=== PATIENT | male | born 1945 | race Caucasian/White ===

== ENCOUNTER 2021-10-11 15:14 | Outpatient (RCR) | payer SELFPAY | END 2021-11-09 23:59 | disposition home or self-care (01) | LOC: CR 15:14 | PROVIDERS: PCP Family Medicine Adult Medicine; Visit Provider Family Medicine ==

== ENCOUNTER 2021-12-10 10:00 | Outpatient (RCR) | payer MEDICARE, SELFPAY | END 2021-12-10 23:59 | disposition home or self-care (01) | LOC: CR 10:00 | PROVIDERS: PCP Family Medicine Adult Medicine; Visit Provider Family Medicine | DX: Z51.89 Encounter for other specified aftercare (principal); I25.10 Atherosclerotic heart disease of native coronary artery without angina pectoris; Z95.5 Presence of coronary angioplasty implant and graft | CPT/HCPCS: S9472 ==

== ENCOUNTER 2021-12-31 10:00 | Outpatient (RCR) | payer MEDICARE, SELFPAY | END 2022-01-07 23:59 | disposition home or self-care (01) | LOC: CR 10:00 | PROVIDERS: PCP Family Medicine Adult Medicine; Visit Provider Family Medicine | DX: I25.10 Atherosclerotic heart disease of native coronary artery without angina pectoris (principal); Z95.5 Presence of coronary angioplasty implant and graft; Z51.89 Encounter for other specified aftercare | CPT/HCPCS: S9472 ==

== ENCOUNTER 2022-02-04 10:00 | Outpatient (RCR) | payer MEDICARE, SELFPAY | END 2022-02-07 23:59 | disposition home or self-care (01) | LOC: CR 10:00 | PROVIDERS: PCP Family Medicine Adult Medicine; Visit Provider Family Medicine | DX: Z51.89 Encounter for other specified aftercare (principal); I25.10 Atherosclerotic heart disease of native coronary artery without angina pectoris; Z95.5 Presence of coronary angioplasty implant and graft | CPT/HCPCS: S9472 ==

== ENCOUNTER 2022-02-25 10:00 | Outpatient (RCR) | payer MEDICARE, SELFPAY | END 2022-03-09 23:59 | disposition home or self-care (01) | LOC: CR 10:00 | PROVIDERS: PCP Family Medicine Adult Medicine; Visit Provider Internal Medicine Cardiovascular Disease | DX: Z51.89 Encounter for other specified aftercare (principal); I25.10 Atherosclerotic heart disease of native coronary artery without angina pectoris; Z95.5 Presence of coronary angioplasty implant and graft | CPT/HCPCS: S9472 ==

== ENCOUNTER 2022-04-03 10:00 | Outpatient (RCR) | payer MEDICARE, SELFPAY ==
--- OUTSIDE RECORDS SUMMARY | 2022-03-10 01:13 | XMS_ITS | Summary of Care ---
:1945 Author Organization [facility] Address [address] [place] [address]- Encounter 01/19/20 - 01/26/20 [facility] [address] [place] [address]- [phone] Encounter Diagnosis Rehab Dx - Bilateral TKA for end stage osteoarthritis (Discharge Diagnosis) - 01/19/20 Discharge Disposition: Home with Home Health Care Attending Physician: Davonte Rosas MD Admitting Physician: Davonte Rosas MD Allergies, Adverse Reactions, Alerts Substance Reaction Severity Status Lipitor Active Medications aspirin 325 mg oral tablet 325 mg = 1 tab, Tab, Oral, BID, 0 Refill(s) Start Date: 01/25/20 Status: Ordereddocusate sodium 100 mg oral capsule 100 mg = 1 cap, Cap, Oral, BID, 60 cap, 0 Refill(s), Route to Pharmacy Electronically, [facility]#[id number] Start Date: 01/26/20 Status: OrderedFlomax 0.4 mg oral capsule 0.8 mg = 2 cap, Cap, Oral, Daily, 0 Refill(s) Start Date: 01/25/20 Status: Orderedirbesartan 150 mg oral tablet 75 mg = 0.5 tab, Tab, Oral, Daily, 30 tab, 0 Refill(s) Start Date: 01/19/20 Status: OrderedLovenox 30 mg/0.3 mL injectable solution 30 mg = 0.3 mL, Soln-Inj, Subcutaneous, BID, 3.9 mL, 0 Refill(s), Print Requisition Start Date: 01/25/20 Status: OrderedLovenox 30 mg/0.3 mL injectable solution 30 mg = 0.3 mL, Soln-Inj, Subcutaneous, BID, 3.9 mL, 0 Refill(s), Route to Pharmacy Electronically, [facility] #[id number] Start Date: 01/26/20 Status: Orderedmelatonin 3 mg oral tablet 3 mg = 1 tab, Tab, Oral, QHS PRN, 0 Refill(s), Insomnia Start Date: 01/25/20 Status: Orderedmultivitamin 1 tab, Tab, Oral, Daily, 30 tab, 0 Refill(s) Start Date: 01/19/20 Status: OrderedoxyCODONE 5 mg oral tablet 5 mg = 1 tab, Tab, Oral, q4hr PRN, 28 tab, 0 Refill(s), PAIN (Scale 4-6), Route to Pharmacy Electronically, [facility] #[id number] Start Date: 01/26/20 Status: OrderedPOM#1 psyllium tab POM#1 psyllium tab, Misc, Oral, Daily, 0 Refill(s) Start Date: 01/25/20 Status: Orderedsenna 8.6 mg oral tablet 8.6 mg = 1 tab, Tab, Oral, BID, 50 tab, 0 Refill(s), Route to Pharmacy Electronically, [facility]#[id number] Start Date: 01/26/20 Status: OrderedtiZANidine 4 mg oral tablet 2 mg = 0.5 tab, Tab, Oral, q8hr PRN, 0 Refill(s), PAIN (Scale 1-10) Start Date: 01/25/20 Status: OrderedtraZODone 50 mg oral tablet 50 mg = 1 tab, Tab, Oral, QHS, 30 tab, 0 Refill(s), Route to Pharmacy Electronically, [facility] #[id number] Start Date: 01/26/20 Status: OrderedTylenol Regular Strength 975 mg = 3 tab, Tab, Oral, TID, 0 Refill(s) Start Date: 01/25/20 Status: Ordered Problem List Condition Effective Dates Status Health Status Informant Alcohol user(Confirmed) Active GERD - Gastro-esophageal reflux Active disease(Confirmed) HTN - Hypertension(Confirmed) Active Hyperlipidemia(Confirmed) Active Mastoidectomy(Confirmed) Active Coronado's neuroma(Confirmed) Active Osteoarthritis(Confirmed) Active Shoulder replacement(Confirmed) Active Tobacco use(Confirmed) Active Tonsillectomy(Confirmed) Active Results LABORATORY Most recent to oldest [Reference Range]: 1 2 WBC - CRD [4.23-9.07 x10^3/mcL] 5.58 x10^3/mcL (01/20/20 6:00 AM) WBC Instrument - CRD [4.23-9.07 x10^3/mcL] 5.58 x10^3/mcL (01/20/20 6:00 AM) RBC - CRD [4.00-5.74 x10^6/mcL] 2.71 x10^6/mcL *LOW* (01/20/20 6:00 AM) Hemoglobin - CRD [12.6-17.1 G/DL] 8.1 G/DL *LOW* (01/20/20 6:00 AM) Hematocrit - CRD [37.1-50.6 %] 25.3 % *LOW* (01/20/20 6:00 AM) MCV - CRD [82.1-98.2 fL] 93.4 fL (01/20/20 6:00 AM) MCH - CRD [25.7-32.2 pg] 29.9 pg (01/20/20 6:00 AM) MCHC - CRD [32.3-36.5 G/DL] 32.0 G/DL *LOW* (01/20/20 6:00 AM) RDW - CRD [11.6-14.4 %] 13.9 % (01/20/20 6:00 AM) MPV - CRD [8.97-11.96 fL] 10.50 fL (01/20/20 6:00 AM) Platelets - CRD [154-333 x10^3/mcL] 215 x10^3/mcL (01/20/20 6:00 AM) Imm Granulocyte - CRD 0.4 % (01/20/20 6:00 AM) Abs Imm Granulocyte - CRD [<=0.05 x10^3/mcL] <0.03 x10^3/mcL (01/20/20 6:00 AM) Abs Lymphocyte - CRD [0.73-2.76 x10^3/mcL] 0.73 x10^3/mcL (01/20/20 6:00 AM) Abs Monocyte - CRD [0.30-0.82 x10^3/mcL] 0.65 x10^3/mcL (01/20/20 6:00 AM) Abs Eosinophil - CRD [0.04-0.54 x10^3/mcL] 0.31 x10^3/mcL (3/12/20 6:00 AM) Abs Basophil - CRD [<=0.08 x10^3/mcL] 0.03 x10^3/mcL (01/20/20 6:00 AM) Abs Neut - CRD [1.78-5.38 x10^3/mcL] 3.84 x10^3/mcL (01/20/20 6:00 AM) NRBC - CRD 0.0 (01/20/20 6:00 AM) Absolute NRBC - CRD [<=0.01 x10^3/mcL] 0.00 x10^3/mcL (01/20/20 6:00 AM) Auto Neutrophil - CRD 68.8 % (01/20/20 6:00 AM) Auto Lymphocyte - CRD 13.1 % (01/20/20 6:00 AM) Auto Monocyte - CRD 11.6 % (01/20/20 6:00 AM) Auto Eos - CRD 5.6 % (01/20/20 6:00 AM) Auto Basophil - CRD 0.5 % (01/20/20 6:00 AM) RDW-SD - CRD 46.9 (01/20/20 6:00 AM) Estimated Creatinine Clearance 67.08 mL/min 67.08 mL/ min (01/26/20 5:00 AM) (01/20/20 7:53 AM) Creatinine Level 1.00 mg/dL (01/20/20 6:00 AM) Sodium - CRD [136-145 mmol/L] 141 mmol/L (01/20/20 6:00 AM) Potassium - CRD [3.5-5.1 mmol/L] 4.0 mmol/L (01/20/20 6:00 AM) Chloride - CRD [100-109 mmol/L] 106 mmol/L (01/20/20 6:00 AM) Carbon Dioxide - CRD [21-32 mmol/L] 28 mmol/L (01/20/20 6:00 AM) Anion Gap - CRD [3.0-11.0] 7.0 (01/20/20 6:00 AM) Glucose - CRD [70-99 mg/dL] 102 mg/dL 1 *HI* (01/20/20 6:00 AM) BUN - CRD [7-22 mg/dL] 13 mg/dL (01/20/20 6:00 AM) Creatinine, Enzymatic - CRD [0.67-1.17 mg/dL] 1.00 mg/dL (01/20/20 6:00 AM) eGFR Enz Non-AA - CRD [>=60] >60 2 (01/20/20 6:00 AM) eGFR Enz AA - CRD [>=60] >60 3 (01/20/20 6:00 AM) BUN/Creat Ratio - CRD 13.0 (01/20/20 6:00 AM) Calcium - CRD [8.5-10.1 mg/dL] 8.6 mg/dL (01/20/20 6:00 AM) Total Protein - CRD [6.4-8.2 G/DL] 5.3 G/DL *LOW* (01/20/20 6:00 AM) Alkaline Phosphatase - CRD [45-117 unit/L] 153 unit/L *HI* (01/20/20 6:00 AM) ALT - CRD [12-78 unit/L] 34 unit/L (01/20/20 6:00 AM) AST - CRD [0-37 unit/L] 40 unit/L *HI* (01/20/20 6:00 AM) Bilirubin, Total - CRD [0.2-1.0 mg/dL] 0.8 mg/dL (01/20/20 6:00 AM) Albumin - CRD [3.4-5.0 G/DL] 2.4 G/DL *LOW* (01/20/20 6:00 AM) Globulin - CRD 2.9 G/DL (01/20/20 6:00 AM) Albumin/Globulin Ratio - CRD 0.8 (01/20/20 6:00 AM) 1Result Comment: Impairment: Fasting glucose 100-125 mg/dL Diabetes Mellitus: Fasting glucose >=126 mg/dL Random glucose >=200 mg/[id number] Comment: Reference range: >60 mL/min/1.73m2 Any value below 60 is considered abnormal and is a strong indicator of a stage of Chronic Kidney Disease. Calculation assumes steady state. Calculated result is dependent upon accurate patient demographics. Calculation has not been validated in women and the elderly. Interpret results for inpatients and patients >65 yrs with caution.3Result Comment: Reference range: >60 mL/min/1.73m2 Any value below 60 is considered abnormal and is a strong indicator of a stage of Chronic Kidney Disease. Calculation assumes steady state. Calculated result is dependent upon accurate patient demographics. Calculation has not been validated in women and the elderly. Interpret results for inpatients and patients >65 yrs with caution. Vital Signs Most recent to oldest 1 2 3 [Reference Range]: Temperature Oral F 98.7 DegF 97.7 DegF 98.8 DegF [96.4-99.1 DegF] (01/26/20 9:05 AM) (01/25/20 3:31 PM) (01/25/20 7: 15 AM) Peripheral Pulse Rate 98 bpm 76 bpm 80 bpm [60-100 bpm] (01/26/20 9:05 AM) (01/25/20 3:31 PM) (01/25/20 11: 54 AM) Respiratory Rate [14-20 17 br/min 16 br/min 14 br/mi n br/min] (01/26/20 9:05 AM) (01/25/20 3:31 PM) (01/25/20 11: 54 AM) Blood Pressure 132/72 mmHg [90-140/60-90 mmHg] (01/25/20 3:31 PM) Systolic Blood Pressure 128 mmHg 117 mmHg [90-140 mmHg] (01/26/20 9:05 AM) (01/25/20 7:15 AM) Diastolic Blood Pressure 67 mmHg 62 mmHg [60-90 mmHg] (01/26/20 9:05 AM) (01/25/20 7:15 AM) Extremity used to obtain Left Arm Left Arm Left Ar m blood pressure (01/26/20 9:05 AM) (01/25/20 3:31 PM) (01/25/20 7:1 5 AM) Cuff Size. Medium Medium Medium (01/26/20 9:05 AM) (01/25/20 3:31 PM) (01/25/20 7:1 5 AM) Diastolic Blood Pressure 65 mmHg with Activity [60-90 (01/21/20 10:00 AM) mmHg] Systolic Blood Pressure 118 mmHg with Activity [90-140 (01/21/20 10:00 AM) mmHg] Vital Signs w/ Activity after walking Additional Info (01/21/20 10:00 AM) Peripheral Pulse Rate 98 Post (01/20/20 8:00 AM) Systolic Blood Pressure 68 Post (01/20/20 8:00 AM) Diastolic Blood Pressure 41 Post (01/20/20 8:00 AM) SpO2 Post 95 (01/20/20 8:00 AM) Oxygen Therapy Post Room air (01/20/20 8:00 AM) Vital Signs Additional 82/54 in supine. reported t o RN & TEST CONSULTANT. TEST CONSULTANT requesting bedside tx until med consult Information Post (01/20/20 8:00 AM) Temperature Oral 37.1 DegC 36.5 DegC 37.1 DegC [35.8-37.3 DegC] (01/26/20 9:05 AM) (01/25/20 3:31 PM) (01/25/20 7: 15 AM)
== END 2022-04-09 23:59 | disposition home or self-care (01) ==
LOC: CR 10:00
PROVIDERS: PCP Family Medicine; Visit Provider Internal Medicine Cardiovascular Disease
DX: Z51.89 Encounter for other specified aftercare (principal); I25.10 Atherosclerotic heart disease of native coronary artery without angina pectoris; Z95.5 Presence of coronary angioplasty implant and graft
CPT/HCPCS: S9472

== ENCOUNTER 2022-04-10 16:10 | Outpatient (RCR) | payer MEDICARE, SELFPAY | END 2022-05-09 23:59 | disposition home or self-care (01) | LOC: CR 16:10 | PROVIDERS: PCP Family Medicine; Visit Provider Internal Medicine Cardiovascular Disease | DX: I25.10 Atherosclerotic heart disease of native coronary artery without angina pectoris (principal); Z51.89 Encounter for other specified aftercare; Z95.5 Presence of coronary angioplasty implant and graft | CPT/HCPCS: S9472 ==